=== PATIENT | female | born 1985 | race Caucasian/White ===

== ENCOUNTER 2017-05-27 08:07 | Emergency (ER) | payer OTHER ==
[~2017-05-27] VITALS: Ht 162.6 cm; Wt 68.2 kg
[~2017-05-27 08:07] MED LIST: DOCO200C5 PO; FERR256T PO; IRON-23; NOCURR; PREN-27 PO
[2017-05-27] MEDS ORDERED: HYDROCODONE/ACETAMINOPHEN 5-325 MG TABLET PO ONE (08:45)
[2017-05-27 08:50] VITALS: BP 125/71
== END 2017-05-27 09:02 | disposition home or self-care (01) ==
LOC: EMS 08:09
DX: K02.9 Dental caries, unspecified (principal); Z88.2 Allergy status to sulfonamides
CPT/HCPCS: 99283

== ENCOUNTER 2017-08-11 07:36 | Emergency (ER) | payer OTHER ==
[~2017-08-11] VITALS: Ht 162.6 cm; Wt 70.5 kg
[2017-08-11 07:58] VITALS: BP 133/90
[2017-08-11] MEDS ORDERED: HYDROCODONE/ACETAMINOPHEN 5-325 MG TABLET PO ONE (09:00)
== END 2017-08-11 09:24 | disposition home or self-care (01) ==
LOC: EMS 07:37
DX: K08.89 Other specified disorders of teeth and supporting structures (principal); Z88.2 Allergy status to sulfonamides
CPT/HCPCS: 99283

== ENCOUNTER 2017-09-19 21:33 | Emergency (ER) | payer OTHER ==
[~2017-09-19] VITALS: Ht 162.6 cm; Wt 71.4 kg
[2017-09-19 21:35] VITALS: BP 135/84
[2017-09-19] MEDS ORDERED: LIDOCAINE HCL/PF 1% 2 ML VIAL IM ONE (22:15)
[2017-09-19] MEDS ORDERED: IBUPROFEN 800 MG TABLET PO ONE (22:15)
[2017-09-19] MEDS ORDERED: CefTRIAXone SODIUM 1 GM/VIAL IM ONE (22:15)
== END 2017-09-19 22:30 | disposition home or self-care (01) ==
LOC: EMS 21:35
DX: K04.7 Periapical abscess without sinus (principal); Z88.2 Allergy status to sulfonamides
CPT/HCPCS: 96372; 99283; J0696; J3490

== ENCOUNTER 2018-03-22 15:48 | Emergency (ER) | payer OTHER ==
[~2018-03-22] VITALS: Ht 162.6 cm; Wt 80.9 kg
[2018-03-22 17:41] VITALS: BP 118/71
== END 2018-03-22 17:42 | disposition home or self-care (01) ==
LOC: EMS 15:49
DX: K08.89 Other specified disorders of teeth and supporting structures (principal); Z88.2 Allergy status to sulfonamides
CPT/HCPCS: 99283

== ENCOUNTER 2018-11-19 08:49 | Emergency (ER) | payer OTHER ==
[~2018-11-19] VITALS: Ht 162.6 cm; Wt 81.8 kg
[2018-11-19] MEDS ORDERED: KETOROLAC TROMETHAMINE 60 MG/2 ML VIAL IM ONE (10:30)
[2018-11-19 12:22] VITALS: BP 125/88
== END 2018-11-19 12:31 | disposition home or self-care (01) ==
LOC: EMS 08:51
DX: M54.5 Low back pain (principal); Z88.2 Allergy status to sulfonamides
CPT/HCPCS: 72100; 81025; 96372; 99283; J1885

== ENCOUNTER 2021-09-29 08:56 | Emergency (ER) | payer OTHER ==
[~2021-09-29] VITALS: Ht 162.6 cm; Wt 81.8 kg
[2021-09-29 08:57] VITALS: BP 150/91
== END 2021-09-29 11:04 | disposition home or self-care (01) ==
LOC: EMS 08:56
DX: R05.9 Cough, unspecified (principal); Z20.822 Contact with and (suspected) exposure to COVID-19
CPT/HCPCS: 99283; U0003